=== PATIENT | male | born 1960 | race Caucasian/White ===

== ENCOUNTER 2022-12-07 09:02 | Emergency (ER) | payer MEDICAID ==
[~2022-12-07] VITALS: Ht 175.3 cm; Wt 68.0 kg
[2022-12-07] MEDS ORDERED: IBUPROFEN 600MG TABLET PO ONE (10:00)
[2022-12-07] MEDS ORDERED: IBUP-2029 MT (11:24)
[2022-12-07 11:49] VITALS: BP 129/81
[2022-12-07] MEDS ORDERED: IBUPROFEN 600MG TABLET PO SCH (12:00)
== END 2022-12-07 12:30 | disposition home or self-care (01) ==
LOC: ER 09:02
DX: S53.492A Other sprain of left elbow, initial encounter (principal); W01.0XXA Fall on same level from slipping, tripping and stumbling without subsequent striking against object, initial encounter; Y93.89 Activity, other specified; Y92.89 Other specified places as the place of occurrence of the external cause
CPT/HCPCS: 73080; 99283

== ENCOUNTER 2024-08-02 13:24 | Emergency (ER) | payer MEDICAID ==
[~2024-08-02] VITALS: Ht 170.2 cm; Wt 77.0 kg
[~2024-08-02 13:24] MED LIST: CARV3.1242 MT; LOSA25TA26 MT; SPIR25TA6 MT
[2024-08-02 13:27] VITALS: O2SAT 99
[2024-08-02] MEDS: IBUPROFEN 600MG TABLET PO STA (13:41)
[2024-08-02 14:04] LABS: BASOPHILS % 0.7 % (0.0-2.0); EOSINOPHILS % 1.9 % (0.0-5.0); HEMATOCRIT. 36.4 % (42.0-52.0); HEMOGLOBIN. 11.9 g/dL (14.0-18.0); LYMPHOCYTES % 22.3 % (20.0-50.0); MEAN CORPUSCULAR HEMOGLOBIN 29.5 pg (28.0-32.0); MEAN CORPUSCULAR HGB CONC 32.8 g/dL (31.0-37.0); MEAN CORPUSCULAR VOLUME 90.1 fL (80.0-94.0); MEAN PLATELET VOLUME 8.4 fl (7.4-10.4); MONOCYTES % 11.7 % (2.0-8.0); NEUTROPHILS % 63.4 % (40.0-76.0); PLATELET 262 x1000/uL (130-400); RED BLOOD CELL COUNT 4.04 mill/uL (4.7-6.1); RED CELL DISTRIBUTION WIDTH 14.8 % (11.6-14.6); WHITE BLOOD COUNT 7.8 x1000/uL (4.5-11.0)
[2024-08-02 14:07] LABS: CHLORIDE 106 mEq/L (98-107); POTASSIUM 3.8 mEq/L (3.5-5.1); SODIUM 140 mEq/L (136-145)
[2024-08-02 14:08] LABS: CARBON DIOXIDE 26 mEq/L (21-32)
[2024-08-02 14:09] LABS: CALCIUM 9.4 mg/dL (8.7-10.4)
[2024-08-02 14:13] LABS: CREATININE 0.8 mg/dL (0.6-1.3); GLUCOSE 125 mg/dL (70-105)
[2024-08-02 14:14] LABS: TROPONIN I HIGH SENSITIVITY 14 ng/L (3.0-53); UREA NITROGEN BLOOD 13 mg/dL (9-23)
[2024-08-02 14:22] LABS: ETHANOL BLOOD < 10 mg/dL (<10)
[2024-08-02 18:05] LABS: TROPONIN I HIGH SENSITIVITY 15 ng/L (3.0-53)
[2024-08-02 19:59] VITALS: BP 104/72; PULSE 65; RESP 15; TEMP 36.89184; O2SAT 97
== END 2024-08-02 20:00 | disposition home or self-care (01) ==
LOC: ER 13:24
DX: R07.89 Other chest pain (principal); F14.10 Cocaine abuse, uncomplicated; F15.10 Other stimulant abuse, uncomplicated; F12.10 Cannabis abuse, uncomplicated; I10 Essential (primary) hypertension; Z79.899 Other long term (current) drug therapy; Z86.73 Personal history of transient ischemic attack (TIA), and cerebral infarction without residual deficits
CPT/HCPCS: 80048; 80320; 85025; 84484; 36415; 71045; 93005; 99285; Z7610 ×2; G0480